=== PATIENT | male | born 1955 | race Caucasian/White ===

== ENCOUNTER 2016-08-24 14:26 | Outpatient (CLI) ==
[2014-08-14 11:24] VITALS: BMI 34.7
--- NOTE | 2016-08-24 16:25 | DI ---
Exam: Three x-rays of the right shoulder. Comparison: Chest x-ray performed on 08/14/2014. Reason for exam: Acute right shoulder pain. FINDINGS: No acute fracture or dislocation. The humeral head articulates to the bony glenoid. The acromiocla vicular joint spaces well maintained. The scapular Y-view is non orthogonal without an obvious disp laced fracture. Impression: No acute fracture or dislocation in the right shoulder.
== END 2016-08-24 14:27 | disposition home or self-care (01) ==
LOC: RAD 14:26
PROVIDERS: ATTEND Family Medicine
DX: M25.511 Pain in right shoulder (principal)

== ENCOUNTER 2017-05-03 11:21 | Outpatient (CLI) ==
[2014-08-14 11:24] VITALS: BMI 34.7
--- NOTE | 2017-05-03 11:47 | DI ---
EXAM: Four views of the lumbar spine HISTORY: Chronic back pain. COMPARISON: Lumbar spine x-ray 12/15/2010 FINDINGS: There is no acute compression fracture or subluxation. There are few anterior disc osteoph ytes with mild to moderate facet arthropathy. Lumbosacral junction is unchanged. Soft tissues are u nremarkable. There is no lytic or blastic lesion. IMPRESSION: Mild osteoarthritis and facet arthropathy with no acute abnormality.
== END 2017-05-03 11:22 | disposition home or self-care (01) ==
LOC: RAD 11:21
PROVIDERS: ATTEND Family Medicine
DX: M54.5 Low back pain (principal); G89.29 Other chronic pain

== ENCOUNTER 2017-09-26 12:16 | Outpatient (CLI) ==
[2014-08-14 11:24] VITALS: BMI 34.7
--- NOTE | 2017-09-26 13:06 | US ---
EXAM: Scrotal ultrasound. History: Bilateral scrotal pain. Technique: Multiple sonographic images through the scrotum were obtained. Color duplex Doppler was used to interrogate vascular flow. Findings: The right testicle measures 4.8 cm x 2.2 cm x 3.2 cm. Blood flow was documented within the right jayjay ticle. No right intratesticular masses. The right epididymis is not hyperemic. The left testicle measures 4.8 cm x 2.3 cm x 3.1 cm. Blood flow was documented within the left testi bob. No left intratesticular masses are identified. The left epididymis is not hyperemic. No varicoceles and no significant hydroceles identified. Impression: Unremarkable exam.
== END 2017-09-26 12:17 | disposition home or self-care (01) ==
LOC: RAD 12:16
PROVIDERS: ATTEND Family Medicine
DX: N50.82 Scrotal pain (principal)

== ENCOUNTER 2018-01-30 15:46 | Outpatient (CLI) ==
[2014-08-14 11:24] VITALS: BMI 34.7
== END 2018-01-30 15:47 | disposition home or self-care (01) ==
LOC: FCC-LAB 15:46
PROVIDERS: ATTEND Family Medicine
DX: G62.9 Polyneuropathy, unspecified (principal); J40 Bronchitis, not specified as acute or chronic
CPT/HCPCS: 36415; 80053; 82607; 85025

== ENCOUNTER 2018-02-06 12:03 | Outpatient (CLI) ==
[2014-08-14 11:24] VITALS: BMI 34.7
== END 2018-02-06 12:04 | disposition home or self-care (01) ==
LOC: FCC-LAB 12:03
PROVIDERS: ATTEND Family Medicine
DX: R73.9 Hyperglycemia, unspecified (principal)
CPT/HCPCS: 36415; 83037

== ENCOUNTER 2018-02-20 08:57 | Outpatient (CLI) ==
[2014-08-14 11:24] VITALS: BMI 34.7
--- NOTE | 2018-02-20 09:20 | DI ---
EXAM: Two views of the chest. History: Bronchitis. Comparison: Chest radiograph 08/14/2014 Findings: Heart size is within normal limits. No focal consolidation. No appreciable pleural fluid and no pneumothorax. No acute osseous abnormalities. Impression: No acute cardiopulmonary process. No change compared to the prior study
== END 2018-02-20 08:58 | disposition home or self-care (01) ==
LOC: RAD 08:57
PROVIDERS: ATTEND Family Medicine
DX: J40 Bronchitis, not specified as acute or chronic (principal)

== ENCOUNTER 2018-02-21 14:44 | Outpatient (CLI) ==
[2014-08-14 11:24] VITALS: BMI 34.7
== END 2018-02-21 14:45 | disposition home or self-care (01) ==
LOC: FCC-LAB 14:44
PROVIDERS: ATTEND Family Medicine
DX: R06.02 Shortness of breath (principal); R06.09 Other forms of dyspnea
CPT/HCPCS: 36415; 80053; 85025

== ENCOUNTER 2018-08-01 07:56 | Outpatient (POV) ==
[2014-08-14 11:24] VITALS: BMI 34.7
== END 2018-08-01 17:00 ==
LOC: OUTPT 07:56
PROVIDERS: ATTEND Otolaryngology
DX: R42 Dizziness and giddiness (principal)
CPT/HCPCS: 92557; 92567

== ENCOUNTER 2018-08-28 09:44 | Outpatient (CLI) ==
[2014-08-14 11:24] VITALS: BMI 34.7
== END 2018-08-28 09:45 | disposition home or self-care (01) ==
LOC: RHC-LAB 09:44 → FCC-LAB 09:45
PROVIDERS: ATTEND Family Medicine
DX: E87.6 Hypokalemia (principal)
CPT/HCPCS: 36415; 80053

== ENCOUNTER 2018-09-08 07:43 | Outpatient (CLI) ==
[2014-08-14 11:24] VITALS: BMI 34.7
--- NOTE | 2018-09-08 09:29 | DI ---
EXAM: CHEST FRONTAL AND LATERAL VIEWS HISTORY: Cancer screening. COMPARISON: 02/20/2018 FINDINGS: Heart size is within normal limits. No suspicious pulmonary opacities or evidence of mass lesion identified. No acute infiltrates. Normal vascularity. IMPRESSION: 1. No suspicious opacities or evidence of lymphadenopathy/mass within limits of radiography.
== END 2018-09-08 07:44 | disposition home or self-care (01) ==
LOC: RAD 07:43
PROVIDERS: ATTEND Family Medicine
DX: Z13.83 Encounter for screening for respiratory disorder NEC (principal); Z59.8 Other problems related to housing and economic circumstances

== ENCOUNTER 2018-09-13 08:44 | Outpatient (CLI) ==
[2014-08-14 11:24] VITALS: BMI 34.7
--- NOTE | 2018-09-13 09:54 | CT ---
EXAM: CT of the chest with contrast History: Chronic bronchitis. Comparison: Chest radiograph 09/08/2018, chest CT 04/26/2018 Technique: Multiplanar CT images through the thorax were obtained following administration of IV con trast Findings: Heart size is normal. No pericardial effusion. 4.3 cm ascending aortic aneurysm. No pat hologically enlarged thoracic lymph nodes. No consolidation. No pleural fluid and no pneumothorax. No suspicious lung masses or lung nodules. Mild micronodular infiltrate within the left lower lobe. Within the visualized upper abdomen, status post cholecystectomy. No acute osseous abnormalities. Impression: 1. Mild micronodular infiltrate within the left lower lobe most likely infectious or inflammatory et iology. There is no consolidated pneumonia. 2. 4.3 cm ascending aortic aneurysm
== END 2018-09-13 08:45 | disposition home or self-care (01) ==
LOC: RAD 08:44
PROVIDERS: ATTEND Family Medicine
DX: J41.1 Mucopurulent chronic bronchitis (principal); Z77.098 Contact with and (suspected) exposure to other hazardous, chiefly nonmedicinal, chemicals

== ENCOUNTER 2018-10-05 09:30 | Outpatient (CLI) ==
[2014-08-14 11:24] VITALS: BMI 34.7
--- NOTE | 2018-10-05 14:55 | MRI ---
EXAM: MRI of the left shoulder without contrast COMPARISON: Left shoulder radiographs 08/14/2014. HISTORY: Left shoulder pain. TECHNIQUE: Multiplanar noncontrast MR images of the left shoulder were acquired using a 1.2 Jeannine ma gnet. The submitted images are moderately limited by patient motion artifact and the coronal inversi on recovery sequence was repeated. FINDINGS: No recent radiographs of the left shoulder are available for comparison and radiographic c orrelation is recommended. There is marked subscapularis tendinosis with partial-thickness articular surface tear involving the superior insertional fibers measuring 0.4 cm in severity inferior dimension involving approximally 50 % tendon thickness. Marked supraspinatus tendinosis with linear fluid signal undercutting insertiona l fibers anteriorly measuring 1.2 x 0.8 cm extent consistent with a tear with near full-thickness and suspected irregular full-thickness components. Smaller partial-thickness/rim rent tear extends thro ugh the more posterior insertional fibers and through the adjacent infraspinatus with an intrasubstan ce component extending through the critical zone of the infraspinatus. Question articular surface ex tension of the tear at the critical zone. Fluid in the subacromial/subdeltoid bursa. Bursal surface fraying of the supraspinatus at the level of the acromion. Limited assessment of the glenoid labrum on this non arthrographic, motion limited study. There is h yperintense signal involving the superior and posterior glenoid labrum focused along the chondrolabra l junction related intrasubstance degeneration and possible superimposed tear on limited assessment. Moderate glenohumeral joint osteoarthrosis without an acute fracture or dislocation. Heterogeneous signal along the bone marrow with confluent regions of inversion recovery hyperintense/T1 hypointense signal suggesting nonspecific red marrow reconversion/hyperplasia. No focal marrow lesion. The long head of the biceps is located within the bicipital groove with mild tendinosis. There are marked hypertrophic degenerative changes of the acromioclavicular joint. Low-lying acromio n with mild lateral downsloping of the acromion. No evidence of an os acromiale or abnormal widening of the acromioclavicular joint space. IMPRESSION: 1. Marked rotator cuff tendinosis. Insertional tear of the supraspinatus with near full-thickness c omponent possible irregular full-thickness component as described. Partial-thickness tear of the dis shawna infraspinatus and subscapularis. 2. Fluid in the subacromial/subdeltoid bursa related to bursitis and/or full-thickness component of the rotator cuff tear. 3. Long head biceps tendinosis. 4. Marked hypertrophic degenerative changes of the acromioclavicular joint. Low-lying acromion with mild lateral downsloping of the acromion. 5. Moderate degenerative changes of the glenohumeral joint. Heterogeneous signal involving the bone marrow, favoring nonspecific red marrow reconversion/hyperplasia. 6. Intermediate signal within the substance of the superior to posterior glenoid labrum which may re present intrasubstance degeneration though MR arthrography could be considered in order to exclude a superimposed tear as clinically warranted.
== END 2018-10-05 09:31 | disposition home or self-care (01) ==
LOC: RAD 09:30
PROVIDERS: ATTEND Orthopaedic Surgery
DX: M19.012 Primary osteoarthritis, left shoulder (principal); M25.512 Pain in left shoulder; M75.102 Unspecified rotator cuff tear or rupture of left shoulder, not specified as traumatic